=== PATIENT | male | born 1945 | race Caucasian/White ===

== ENCOUNTER 2018-10-03 19:30 | Outpatient (CLI) | payer MEDICARE, OTHER | END 2018-10-03 19:31 | disposition home or self-care (01) | LOC: EDBD → SLEEPLAB 19:30 | PROVIDERS: ATTEND Specialist | DX: G47.33 Obstructive sleep apnea (adult) (pediatric) (principal); R53.83 Other fatigue; R06.83 Snoring; G47.10 Hypersomnia, unspecified; G47.00 Insomnia, unspecified; G47.61 Periodic limb movement disorder; Z68.36 Body mass index [BMI] 36.0-36.9, adult | CPT/HCPCS: 95810 ==

== ENCOUNTER 2018-11-05 20:30 | Outpatient (CLI) | payer MEDICARE, OTHER | END 2018-11-05 20:31 | disposition home or self-care (01) | LOC: SLEEPLAB 20:30 | PROVIDERS: ATTEND Specialist | DX: G47.33 Obstructive sleep apnea (adult) (pediatric) (principal); R53.83 Other fatigue; G47.61 Periodic limb movement disorder | CPT/HCPCS: 95811 ==

== ENCOUNTER 2019-08-10 08:52 | Outpatient (CLI) | payer MEDICARE, OTHER ==
--- NOTE | 2019-08-10 09:45 | RAD ---
CERVICAL SPINE SEVEN VIEWS; 08/10/2019 HISTORY: Neck pain. COMPARISON: None. FINDINGS: Frontal radiograph demonstrates multilevel mid cervical spine facet and uncovertebral osteophyte form ations, most prominent at the C5-C6 level. The open mouth odontoid view demonstrates a normal appeari ng dens and C1-C2 articulation. The neutral lateral exam demonstrates disk space narrowing with degen erative endplate change and anterior osteophyte formation at C3-C4 and C5-C6. There is minimal retrol isthesis on the neutral view at C3-C4, measuring in the 2-3 mm range. The cervicothoracic junction appears intact on the Swimmer's lateral view. The dens appears intact on the Fuchs view. Flexion imaging demonstrates anterolisthesis at C2-C3 measuring 4 mm and at C4-C5 measuring 3 mm. The extension imaging demonstrates retrolisthesis at C3-C4 measuring in the 3 mm range. IMPRESSION: Degenerative change within the cervical spine, most prominent at C3-C4 and C5-C6. Mild multilevel ant erolisthesis/retrolisthesis as detailed above. POS: [facility]
== END 2019-08-10 08:53 | disposition home or self-care (01) ==
LOC: TBSIIMAG 08:52
PROVIDERS: ATTEND Surgery
DX: M54.2 Cervicalgia (principal); M47.812 Spondylosis without myelopathy or radiculopathy, cervical region; M43.12 Spondylolisthesis, cervical region
CPT/HCPCS: 36415; 72050; 84153; 84154

== ENCOUNTER 2020-05-22 09:58 | Outpatient (CLI) | payer MEDICARE, OTHER ==
--- NOTE | 2020-05-22 10:59 | RAD ---
TWO VIEW CHEST: HISTORY: Dyspnea. COMPARISON: No comparison. FINDINGS: Linear stranding in the left lower lung. No focal infiltrate. Heart and mediastinum unremarkable. No evidence of vascular congestion. Osseous structures are unremarkable. IMPRESSION: No definite infiltrate. POS: [facility]
== END 2020-05-22 09:59 | disposition home or self-care (01) ==
LOC: BICRAD 09:58
PROVIDERS: ATTEND Internal Medicine Critical Care Medicine
DX: R06.00 Dyspnea, unspecified (principal)
CPT/HCPCS: 71046

== ENCOUNTER 2021-03-22 14:58 | Outpatient (CLI) | payer MEDICARE, OTHER | END 2021-03-22 14:59 | disposition home or self-care (01) | LOC: BICULT 14:58 | PROVIDERS: ATTEND Internal Medicine | DX: R22.32 Localized swelling, mass and lump, left upper limb (principal) | CPT/HCPCS: 76999 ==

== ENCOUNTER 2021-11-22 12:00 | Outpatient (CLI) | payer MEDICARE, OTHER ==
[2021-11-23 00:17] LABS: SARS-CoV-2 PCR by NAA DETECTED (NotDetected)
== END 2021-11-22 12:01 | disposition home or self-care (01) ==
LOC: LABBT 12:00
PROVIDERS: ATTEND Surgery
DX: U07.1 COVID-19 (principal); Z01.812 Encounter for preprocedural laboratory examination; M47.812 Spondylosis without myelopathy or radiculopathy, cervical region
CPT/HCPCS: U0003; U0005

== ENCOUNTER 2021-12-20 09:27 | Day surgery (SDC) | payer MEDICARE, OTHER ==
[2021-12-17 10:36] VITALS: BMI 36.8
[2021-12-20] MEDS ORDERED: PROPOFOL 200 MG/20 ML VIAL ONE (12:00)
[2021-12-20] MEDS ORDERED: Lidocaine 1% PF 5 ML VIAL ONE (12:00)
[2021-12-20] MEDS ORDERED: Dexamethasone 20 MG/5 ML VIAL ONE (12:00)
[2021-12-20] MEDS ORDERED: Ondansetron PF 4 MG/2 ML Vial ONE (12:00)
== END 2021-12-20 14:52 | disposition home or self-care (01) ==
LOC: SDC/OP 09:27 → SDC 09:27 → EDSTATUS 12:00 → SDC/OP 14:52
PROVIDERS: ATTEND Surgery
DX: M75.111 Incomplete rotator cuff tear or rupture of right shoulder, not specified as traumatic (principal); M19.011 Primary osteoarthritis, right shoulder; M25.411 Effusion, right shoulder; M47.22 Other spondylosis with radiculopathy, cervical region; M48.02 Spinal stenosis, cervical region; M43.12 Spondylolisthesis, cervical region; M43.16 Spondylolisthesis, lumbar region; E78.5 Hyperlipidemia, unspecified; K21.9 Gastro-esophageal reflux disease without esophagitis; I10 Essential (primary) hypertension; Z79.899 Other long term (current) drug therapy; Z88.5 Allergy status to narcotic agent; Z88.8 Allergy status to other drugs, medicaments and biological substances; Z91.040 Latex allergy status
CPT/HCPCS: 72141; 72148; J1100; J2405; J2704

== ENCOUNTER 2022-05-12 07:41 | Outpatient (CLI) | payer MEDICARE, OTHER | END 2022-05-12 07:42 | disposition home or self-care (01) | LOC: RAD 07:41 | PROVIDERS: ATTEND Internal Medicine Critical Care Medicine | DX: R06.00 Dyspnea, unspecified (principal); I70.0 Atherosclerosis of aorta | CPT/HCPCS: 71046 ==